=== PATIENT | male | born 1940 | race Caucasian/White ===

== ENCOUNTER 2023-06-09 20:12 | Inpatient (IN) | payer OTHER ==
[~2023-06-09] VITALS: Ht 165.1 cm; Wt 90.7 kg
[2023-06-09] MEDS ORDERED: ATOR10TA PO (20:34)
[2023-06-09] MEDS ORDERED: AMLO2.5T4 PO (20:34)
[2023-06-09] MEDS ORDERED: AMIODARONE HCL IV 150 MG in IV DEXTROSE 5% 100 ML IV ONE (21:30)
[2023-06-09] MEDS ORDERED: ENOXAPARIN SODIUM 100 MG/ML DISP.SYRIN SQ ONE ×2 (21:30→21:52)
[2023-06-09] MEDS ORDERED: AMIODARONE HCL 150 MG/3 ML VIAL IV ONE ×2 (21:52→22:33)
[2023-06-09 22:27] LABS: BASOPHILS % (AUTO) 0.4 % (0.0-2.0); HEMATOCRIT 46.3 % (36.7-47.1); HEMOGLOBIN 15.7 g/dL (12.5-16.3); LYMPHOCYTES # (AUTO) 0.6 K/uL (0.8-4.8); LYMPHOCYTES % (AUTO) 5.3 % (20.5-51.5); MEAN CORPUSCULAR HEMOGLOBIN 30.6 uug (23.8-33.4); MEAN CORPUSCULAR HGB CONC 34 g/dL (32.5-36.3); MONOCYTES # (AUTO) 1.2 K/uL (0.1-1.30); MONOCYTES % (AUTO) 11.3 % (0.0-11.0); NEUTROPHILS # (AUTO) 8.8 K/uL (1.8-8.9); PLATELET COUNT (AUTO) 268 K/uL (152-348); RED BLOOD CELL COUNT(AUTO) 5.15 MIL/uL (4.06-5.63); RED CELL DISTRIBUTION WIDTH 13.6 % (12.1-16.2); WHITE BLOOD COUNT (AUTO) 10.6 K/uL (3.6-10.2)
[2023-06-09] MEDS: AMIODARONE HCL IV 450 MG in IV DEXTROSE 5% 250 ML IV PRN ×2 (22:45→23:52)
[2023-06-09 22:46] LABS: CALCIUM 9.2 mg/dL (8.5-10.1); CARBON DIOXIDE 26 mmol/L (21-32); CHLORIDE 104 mmol/L (98-107); CREATININE 1.2 mg/dL (0.6-1.3); GLUCOSE 125 mg/dL (74-106); POTASSIUM 3.6 mmol/L (3.5-5.1); SODIUM SERUM 142 mmol/L (136-145); UREA NITROGEN, BLOOD 14 mg/dL (7-18)
[2023-06-09 22:49] LABS: DIFFERENTIAL COMMENT 1
[2023-06-09 23:02] LABS: ALANINE AMINOTRANSFERASE 39 U/L (16-63); ALBUMIN 3.7 g/dL (3.4-5.0); ALKALINE PHOSPHATASE 79 U/L (50-136); ASPARTATE AMINOTRANSFERASE 74 U/L (15-37); BILIRUBIN,DIRECT 0.2 mg/dL (0.0-0.2); BILIRUBIN,TOTAL 0.7 mg/dL (0.2-1.0); NT-PRO BNP 269 pg/mL (0-125); TOTAL PROTEIN, SERUM 7.5 g/dL (6.4-8.2)
[2023-06-09] MEDS ORDERED: METOPROLOL TARTRATE 5 MG/5 ML VIAL IVP ONE ×2 (23:45→23:46)
[2023-06-09] MEDS ORDERED: ASPIRIN 81 MG TAB.CHEW PO ONE (23:45)
[2023-06-09] MEDS ORDERED: ASPIRIN 81 MG TAB.CHEW ONE (23:46)
[2023-06-10] MEDS ORDERED: LABETALOL HCL 100 MG/20 ML VIAL ONE (00:58)
[2023-06-10] MEDS ORDERED: LABETALOL HCL 100 MG/20 ML VIAL IV ONE (01:00)
[2023-06-10] MEDS ORDERED: IV NORMAL SALINE 500 ML BAG IV ONE (01:00)
[2023-06-10] MEDS ORDERED: METOPROLOL TARTRATE 5 MG/5 ML VIAL IVP ONE (01:00)
[2023-06-10] MEDS ORDERED: NITROGLYCERIN OINT 1 GM PACKET TP ONE ×2 (01:15→01:18)
[2023-06-10] MEDS: AMIODARONE HCL IV 450 MG in IV DEXTROSE 5% 250 ML IV PRN (02:17)
[2023-06-10] MEDS ORDERED: MAGNESIUM HYDROXIDE 30 ML LIQUID UDC PO PRN (03:45)
[2023-06-10] MEDS ORDERED: ONDANSETRON 4 MG/2 ML VIAL IV PRN (03:45)
[2023-06-10] MEDS ORDERED: REMEDY ESSENTIAL ZINC PASTE 113 GM TP PRN (03:45)
[2023-06-10] MEDS ORDERED: IV 1/2NS 1000 ML 1,000 ML IV PRN (03:45)
[2023-06-10] MEDS ORDERED: ACETAMINOPHEN 325 MG TABLET PO PRN (03:45)
[2023-06-10] MEDS: PANTOPRAZOLE SODIUM 40 MG TABLET.DR PO SCH (07:36)
[2023-06-10] MEDS ORDERED: PANTOPRAZOLE SODIUM 40 MG TABLET.DR PO ONE (07:36)
[2023-06-10] MEDS ORDERED: METOPROLOL TARTRATE 50 MG TABLET ONE ×2 (09:09→21:21)
[2023-06-10] MEDS ORDERED: ASPIRIN 81 MG TAB.CHEW ONE (09:09)
[2023-06-10] MEDS ORDERED: ENOXAPARIN SODIUM 100 MG/ML DISP.SYRIN SQ ONE ×2 (09:10→21:22)
[2023-06-10] MEDS: METOPROLOL TARTRATE 50 MG TABLET PO SCH ×2 (09:13→21:40)
[2023-06-10] MEDS: ASPIRIN 81 MG TAB.CHEW PO SCH (09:13)
[2023-06-10] MEDS: ENOXAPARIN SODIUM 100 MG/ML DISP.SYRIN SQ SCH ×2 (09:14→21:40)
[2023-06-10 11:27] LABS: CALCIUM 8.4 mg/dL (8.5-10.1); CARBON DIOXIDE 28 mmol/L (21-32); CHLORIDE 106 mmol/L (98-107); CREATININE 1.2 mg/dL (0.6-1.3); GLUCOSE 140 mg/dL (74-106); POTASSIUM 3.6 mmol/L (3.5-5.1); SODIUM SERUM 142 mmol/L (136-145); UREA NITROGEN, BLOOD 17 mg/dL (7-18)
[2023-06-10 11:39] LABS: ALANINE AMINOTRANSFERASE 65 U/L (16-63); ALBUMIN 2.9 g/dL (3.4-5.0); ALKALINE PHOSPHATASE 63 U/L (50-136); ASPARTATE AMINOTRANSFERASE 204 U/L (15-37); BILIRUBIN,TOTAL 0.6 mg/dL (0.2-1.0); CHOLESTEROL 153 mg/dL (<200); HDL CHOLESTEROL 51 mg/dL (40-60); MAGNESIUM 2.3 mg/dL (1.8-2.4); PHOSPHOROUS 2.7 mg/dL (2.5-4.9); TOTAL PROTEIN, SERUM 6.3 g/dL (6.4-8.2); TRIGLYCERIDES 178 MG/DL (30-150)
[2023-06-10 11:57] LABS: BASOPHILS % (AUTO) 0.3 % (0.0-2.0); EOSINOPHILS % (AUTO) 0.3 % (0.0-7.0); HEMATOCRIT 42.5 % (36.7-47.1); HEMOGLOBIN 14.3 g/dL (12.5-16.3); LYMPHOCYTES # (AUTO) 1.3 K/uL (0.8-4.8); LYMPHOCYTES % (AUTO) 13.4 % (20.5-51.5); MEAN CORPUSCULAR HEMOGLOBIN 30.7 uug (23.8-33.4); MEAN CORPUSCULAR HGB CONC 34 g/dL (32.5-36.3); MEAN CORPUSCULAR VOLUME 91.2 fL (73.0-96.2); MONOCYTES # (AUTO) 1.7 K/uL (0.1-1.30); MONOCYTES % (AUTO) 17.8 % (0.0-11.0); NEUTROPHILS # (AUTO) 6.5 K/uL (1.8-8.9); NEUTROPHILS % (AUTO) 68.2 % (38.5-71.5); PLATELET COUNT (AUTO) 258 K/uL (152-348); RED BLOOD CELL COUNT(AUTO) 4.67 MIL/uL (4.06-5.63); RED CELL DISTRIBUTION WIDTH 13.9 % (12.1-16.2); WHITE BLOOD COUNT (AUTO) 9.6 K/uL (3.6-10.2)
[2023-06-10 12:00] LABS: DIFFERENTIAL COMMENT 1
[2023-06-10 12:26] LABS: THYROID STIMULATING HORMONE 1.188 mIU/mL (0.358-3.740)
[2023-06-10] MEDS ORDERED: ATOR80TA PO (15:09)
[2023-06-10] MEDS ORDERED: AMLO-212 PO (15:10)
[2023-06-10 15:26] LABS: BAND % (MANUAL) 5 % (0-10); LYMPHOCYTES % (MANUAL) 14 % (20-40); MONOCYTES % (MANUAL) 16 % (2-10); NEUTROPHILS % (MANUAL) 65 % (42-75)
[2023-06-10 15:27] LABS: PLATELET ESTIMATE ADEQUATE
[2023-06-10] MEDS ORDERED: PAXLOVID PO (15:29)
[2023-06-10] MEDS ORDERED: BISACODYL 10 MG SUPP.RECT RC ONE (16:29)
[2023-06-10] MEDS ORDERED: ATORVASTATIN 40 MG TABLET PO SCH (21:00)
[2023-06-10] MEDS ORDERED: ATORVASTATIN 20 MG TABLET ONE (21:21)
[2023-06-11] MEDS ORDERED: PANTOPRAZOLE SODIUM 40 MG TABLET.DR PO ONE (07:32)
[2023-06-11] MEDS: PANTOPRAZOLE SODIUM 40 MG TABLET.DR PO SCH (07:35)
[2023-06-11 08:11] LABS: BASOPHILS % (AUTO) 0.2 % (0.0-2.0); EOSINOPHILS # (AUTO) 0.1 K/uL (0.0-0.7); EOSINOPHILS % (AUTO) 1.3 % (0.0-7.0); HEMATOCRIT 41.6 % (36.7-47.1); HEMOGLOBIN 13.7 g/dL (12.5-16.3); LYMPHOCYTES # (AUTO) 1.6 K/uL (0.8-4.8); LYMPHOCYTES % (AUTO) 23.7 % (20.5-51.5); MEAN CORPUSCULAR HEMOGLOBIN 30.1 uug (23.8-33.4); MEAN CORPUSCULAR HGB CONC 33 g/dL (32.5-36.3); MEAN CORPUSCULAR VOLUME 91.2 fL (73.0-96.2); MONOCYTES # (AUTO) 1.1 K/uL (0.1-1.30); MONOCYTES % (AUTO) 16.7 % (0.0-11.0); NEUTROPHILS # (AUTO) 3.9 K/uL (1.8-8.9); NEUTROPHILS % (AUTO) 58.1 % (38.5-71.5); PLATELET COUNT (AUTO) 255 K/uL (152-348); RED BLOOD CELL COUNT(AUTO) 4.56 MIL/uL (4.06-5.63); RED CELL DISTRIBUTION WIDTH 13.9 % (12.1-16.2); WHITE BLOOD COUNT (AUTO) 6.7 K/uL (3.6-10.2)
[2023-06-11 08:17] LABS: DIFFERENTIAL COMMENT 1
[2023-06-11 08:27] LABS: NEUTROPHILS % (MANUAL) 0 % (42-75)
[2023-06-11 08:34] LABS: ALBUMIN 2.9 g/dL (3.4-5.0); BILIRUBIN,DIRECT 0.1 mg/dL (0.0-0.2); BILIRUBIN,TOTAL 0.5 mg/dL (0.2-1.0); CALCIUM 8.6 mg/dL (8.5-10.1); CREATININE 1.1 mg/dL (0.6-1.3); MAGNESIUM 2.5 mg/dL (1.8-2.4); PHOSPHOROUS 3.1 mg/dL (2.5-4.9); POTASSIUM 4.3 mmol/L (3.5-5.1); TOTAL PROTEIN, SERUM 6.4 g/dL (6.4-8.2)
[2023-06-11] MEDS ORDERED: ASPIRIN 81 MG TAB.CHEW ONE (08:48)
[2023-06-11] MEDS ORDERED: METOPROLOL TARTRATE 50 MG TABLET ONE (08:49)
[2023-06-11] MEDS ORDERED: AMLODIPINE 5 MG TABLET ONE (08:49)
[2023-06-11] MEDS ORDERED: AMLODIPINE 5 MG TABLET PO SCH (09:00)
[2023-06-11] MEDS ORDERED: PAXLOVID PO SCH (09:00)
[2023-06-11] MEDS: ENOXAPARIN SODIUM 100 MG/ML DISP.SYRIN SQ SCH (09:08)
[2023-06-11 09:09] VITALS: BP 122/52
[2023-06-11] MEDS: METOPROLOL TARTRATE 50 MG TABLET PO SCH (09:09)
[2023-06-11] MEDS: ASPIRIN 81 MG TAB.CHEW PO SCH (09:09)
[2023-06-11] MEDS ORDERED: PANT40TA49 PO (10:42)
[2023-06-11] MEDS ORDERED: PAXLOVID PO (10:42)
[2023-06-11] MEDS ORDERED: ENOX100D SQ (10:42)
[2023-06-11] MEDS ORDERED: ASPI81TA31 PO (10:42)
[2023-06-11] MEDS ORDERED: ACET325T53 PO (10:42)
[2023-06-11] MEDS ORDERED: METO50TA16 PO (10:42)
[2023-06-11 15:20] VITALS: O2SAT 97
[2023-06-11] MEDS ORDERED: AZITHROMYCIN 250 MG TABLET ONE (15:40)
[2023-06-11] MEDS ORDERED: CEFTRIAXONE /D5W 50ML IVPB **ER PYXIS IV ONE (15:44)
[2023-06-11] MEDS ORDERED: ATORVASTATIN 40 MG TABLET PO SCH (21:00)
== END 2023-06-11 19:00 | disposition short-term general hospital (02) | DRG 280 ==
LOC: ER 20:26 → TRANSITION 06-10 02:00
PROVIDERS: ADMIT Internal Medicine; ATTEND Internal Medicine
DX: I48.0 Paroxysmal atrial fibrillation (principal); I21.4 Non-ST elevation (NSTEMI) myocardial infarction; J12.82 Pneumonia due to coronavirus disease 2019; U07.1 COVID-19; E66.9 Obesity, unspecified; E78.5 Hyperlipidemia, unspecified; I25.10 Atherosclerotic heart disease of native coronary artery without angina pectoris; R73.03 Prediabetes; Z87.891 Personal history of nicotine dependence; Z88.0 Allergy status to penicillin; I11.9 Hypertensive heart disease without heart failure; Z68.33 Body mass index [BMI] 33.0-33.9, adult; M19.90 Unspecified osteoarthritis, unspecified site; M10.9 Gout, unspecified; K64.9 Unspecified hemorrhoids; R74.01 Elevation of levels of liver transaminase levels; R93.1 Abnormal findings on diagnostic imaging of heart and coronary circulation
CPT/HCPCS: 36415; 70030-TC; 71045; 83605; 83735; 84100; 84443; 84484; 85025; 87040; 93005; 93307; A4606; A4663; G0378; J0282; J0696; J1650; J3490; J7040; J7050; Q0144